=== PATIENT | female | born 1985 | race Caucasian/White ===

== ENCOUNTER → 2017-12-23 14:42 | Outpatient (CLI) | payer BC, SELFPAY ==
[2017-12-25 12:26] LABS: HPV Reflexed? NOT INDICATED
== END ==
PROVIDERS: Visit Provider Obstetrics & Gynecology
DX: Z12.4 Encounter for screening for malignant neoplasm of cervix (principal)
CPT/HCPCS: 88175; G0145

== ENCOUNTER 2020-05-23 12:27 | Outpatient (RCR) | payer OTHER, SELFPAY ==
[2015-11-05 10:51] VITALS: BMI 25.7
[2020-05-23 13:34] LABS: Probe Check PASS; Specimen Processing Control PASS
== END 2020-06-17 23:59 ==
LOC: EMPH 12:27
PROVIDERS: PCP Family Medicine; Visit Provider Family Medicine Geriatric Medicine
DX: U07.1 COVID-19 (principal)
CPT/HCPCS: 87426; 87635; U0002